=== PATIENT | female | born 1975 | race Caucasian/White ===

== ENCOUNTER 2021-11-24 15:10 | Outpatient (CLI) | payer BC | END 2021-11-24 15:11 | disposition home or self-care (01) | LOC: CSHULT 15:10 | PROVIDERS: ATTEND Urology | DX: R31.29 Other microscopic hematuria (principal) | CPT/HCPCS: 76770 ==

== ENCOUNTER 2024-05-31 09:57 | Outpatient (CLI) | payer BC | END 2024-05-31 09:58 | disposition home or self-care (01) | LOC: CSHRAD 09:57 | PROVIDERS: ATTEND Surgery | DX: K21.9 Gastro-esophageal reflux disease without esophagitis (principal) | CPT/HCPCS: 74220 ==

== ENCOUNTER → 2024-11-01 | Day surgery (SDC) | payer BC ==
[~2024-11-01] MED LIST: Gadobenate 529 MG/ML (10ML SDV) ONE; Gadobenate Dimeglumine 2 ML, Sodium Chloride 0.9% 250 ML 10 ML, Iopamidol 8 ML, Lidocai... FS ONE; Iopamidol 300 61% 30 ML VIAL ONE
== END ==
LOC: CSHMRI 10-09 08:14 → EDSTATUS 10-09 08:30 → CSHMRI 09:49
PROVIDERS: ATTEND Family Medicine Sports Medicine
PROC: BQ30YZZ Magnetic Resonance Imaging (MRI) of Right Hip using Other Contrast (ICD-10-PCS; principal; 2024-11-01)
DX: S73.101A Unspecified sprain of right hip, initial encounter (principal); M54.12 Radiculopathy, cervical region; Z79.899 Other long term (current) drug therapy; X58.XXXA Exposure to other specified factors, initial encounter
CPT/HCPCS: 27093; 77002; A9577; J0171; J7050; Q9967

== ENCOUNTER 2024-11-09 09:09 | Outpatient (CLI) | payer BC | END 2024-11-09 09:10 | disposition home or self-care (01) | LOC: CSHMAMMO 09:09 | PROVIDERS: ATTEND Internal Medicine | DX: Z12.31 Encounter for screening mammogram for malignant neoplasm of breast (principal); Z98.82 Breast implant status | CPT/HCPCS: 77063; 77067 ==